=== PATIENT | male | born 1955 | race Caucasian/White ===

== ENCOUNTER 2017-04-22 07:30 | Inpatient (IN) ==
[2017-04-23 19:26] LABS: Basophils # (Auto) 0.1 K/mcL (0.0-0.3); Basophils % (Auto) 0.4 % (0.0-2.0); Eosinophils # (Auto) 0.3 K/mcL (0.0-0.7); Eosinophils % (Auto) 1.9 % (0.0-7.0); Granulocytes % (Auto) 72.5 % (38.0-78.0); Lymphocytes % (Auto) 19.8 % (15.5-49.0); Mean Cell Volume 80.5 fL (80.0-100.0); Mean Corpuscular HGB Conc 33.9 g/dL (31.0-36.0); Mean Corpuscular Hemoglobin 27.3 pg (26.0-34.0); Monocytes # (Auto) 0.8 K/mcL (0.1-0.9); Monocytes % (Auto) 5.4 % (1.0-12.0); Platelet Count 360 K/mcL (140-440); RBC 5.36 M/mcL (4.50-5.90); Red Cell Distribution Width 14.3 % (11.5-14.5)
[2017-04-23 19:32] LABS: Appearance,Urine CLEAR; Bilirubin,Urine NEG (NEG); Color,Urine YELLOW; Glucose,Urine (UA) NEGATIVE (NEG); Leukocyte Esterase,Urine NEG /uL (NEG); Nitrate,Urine NEG (NEG); Protein,Urine NEG (NEG); Urine Blood NEG mg/dL (<0.03); Urobilinogen,Urine NEG (NEG)
[2017-04-23 20:12] LABS: Blood Urea Nitrogen 13 mg/dl (8-23)
[2017-04-29] MEDS ORDERED: CELECOXIB 200 MG CAPSULE PO SCH ×2 (05:00→10:00)
[2017-04-29] MEDS ORDERED: PREGABALIN 75 MG CAPSULE PO SCH ×2 (05:00→10:00)
[2017-04-29] MEDS ORDERED: ceFAZolin 1 GM VIAL IV SCH ×2 (05:00→10:00)
[2017-04-29] MEDS ORDERED: oxyCODONE 10 MG TAB.ER.12H PO SCH ×2 (05:00→10:00)
[2017-04-29] MEDS ORDERED: ACETAMINOPHEN 500 MG TABLET PO SCH ×2 (05:00→10:00)
[2017-04-29] MEDS ORDERED: KETOROLAC 30 MG, ROPIVACAINE HCL/PF 49.5 ML, EPINEPHrine 0.5 MG, 0.9 % SODIUM CHLORIDE ... IJ SCH (06:30)
[2017-04-29] MEDS ORDERED: PROPOFOL 200 MG/20 ML VIAL IV ONE (14:55)
[2017-04-29] MEDS ORDERED: DEXAMETHASONE 10 MG/ML VIAL IV ONE (14:55)
[2017-04-29] MEDS ORDERED: TRANEXAMIC ACID 1,000 MG/10 ML VIAL IV ONE ×2 (14:55→16:27)
[2017-04-29] MEDS ORDERED: ONDANSETRON 4 MG/2 ML VIAL IV ONE (14:55)
[2017-04-29] MEDS ORDERED: PHENYLEPHRINE 10 MG/ML VIAL IV ONE (14:55)
[2017-04-29] MEDS ORDERED: ROPIVACAINE HCL/PF 20 ML VIAL IJ ONE (14:55)
[2017-04-29] MEDS ORDERED: LIDOCAINE HCL/PF 100 MG/5 ML SYRINGE IV ONE (14:55)
[2017-04-29] MEDS ORDERED: MIDAZOLAM 2 MG/2 ML VIAL IV ONE (14:55)
[2017-04-29] MEDS ORDERED: GENTAMICIN SULFATE 800 MG/20 ML VIAL IR ONE (15:14)
[2017-04-29] MEDS ORDERED: METHOCARBAMOL 1,000 MG/10 ML VIAL IV PRN (16:03)
[2017-04-29] MEDS ORDERED: ONDANSETRON 4 MG/2 ML VIAL IV PRN ×2 (16:03→16:27)
[2017-04-29] MEDS ORDERED: BENZOCAINE/MENTHOL 1 LOZENGE PO PRN ×2 (16:03→16:27)
[2017-04-29] MEDS ORDERED: IPRATROPIUM/ALBUTEROL 3 ML AMPUL.NEB NEB PRN (16:03)
[2017-04-29] MEDS ORDERED: fentaNYL 100 MCG/2 ML VIAL IV PRN (16:03)
[2017-04-29] MEDS ORDERED: MEPERIDINE 25 MG/ML SYRINGE IV PRN (16:03)
[2017-04-29] MEDS ORDERED: LACTATED RINGERS 1,000 ML IV SCH (16:15)
[2017-04-29] MEDS ORDERED: POLYETHYLENE GLYCOL 3350 17 GM PACKET PO PRN (16:27)
[2017-04-29] MEDS ORDERED: HYDROmorphone 2 MG/ML SYRINGE IV PRN (16:27)
[2017-04-29] MEDS ORDERED: TEMAZEPAM 15 MG CAPSULE PO PRN (16:27)
[2017-04-29] MEDS ORDERED: MAGNESIUM HYDROXIDE 30 ML ORAL.SUSP PO PRN (16:27)
[2017-04-29] MEDS ORDERED: BISACODYL 10 MG SUPP.RECT PR PRN (16:27)
[2017-04-29] MEDS ORDERED: FLEETS ADULT ENEMA PR PRN (16:27)
[2017-04-29] MEDS ORDERED: ACETAMINOPHEN 325 MG TABLET PO PRN (16:27)
--- NOTE | 2017-04-29 16:27 | Brief Operative Note ---
Date of procedure: 04/29/17 Pre-op diagnosis: Right knee djd Post-op diagnosis: same Procedure: Right knee tka with deya robot Grafts/Implants: Yes Anesthesia: MARINAA Surgeon: Enmanuel Thakkar Associate Financial Advisor: Devin Mcfarlane Estimated blood loss (cc): 22 Tourniquet Time (Minutes): 59 Specimens Removed/Pathology: none sent Condition: stable Disposition: PACU
--- NOTE | 2017-04-29 17:46 | XRay Report ---
HISTORY: Reason for Exam:Post-Op Total Knee FINDINGS: There is a well positioned total knee prosthesis. No fracture is present. There is gas in the joint due to the surgical procedure. IMPRESSION: Well-positioned right knee prosthesis Interpreted and Authenticated by: Kit Barragan 04/29/17
[2017-04-29] MEDS: glipiZIDE 5 MG TABLET PO SCH (17:49)
[2017-04-29] MEDS: 0.45 % SODIUM CHLORIDE 1,000 ML IV SCH (17:49)
[2017-04-29] MEDS: KETOROLAC 15 MG/ML VIAL IV SCH (17:53)
[2017-04-29] MEDS: HYDROcodone/APAP 10/325MG TABLET PO PRN (17:56)
[2017-04-29] MEDS ORDERED: SENNOSIDES 1 TABLET PO SCH (21:00)
[2017-04-29] MEDS ORDERED: TERAZOSIN 5 MG CAPSULE PO SCH (21:00)
[2017-04-29] MEDS ORDERED: SIMVASTATIN 40 MG TABLET PO SCH (21:00)
[2017-04-29] MEDS: MAGNESIUM OXIDE 400 MG TABLET PO SCH (21:45)
[2017-04-29] MEDS: ASPIRIN 325 MG ENTERIC COATED TABLET PO SCH (21:45)
[2017-04-29] MEDS: DOCUSATE SODIUM 100 MG CAPSULE PO SCH (21:45)
[2017-04-29] MEDS: metFORMIN 500 MG TABLET PO SCH (21:45)
[2017-04-29] MEDS: ceFAZolin 1 GM VIAL IV SCH (22:00)
[2017-04-29] MEDS: 0.9 % SODIUM CHLORIDE 10 ML SYRINGE IV SCH (23:06)
[2017-04-30] MEDS: KETOROLAC 15 MG/ML VIAL IV SCH ×3 (00:14→11:58)
[2017-04-30] MEDS: 0.45 % SODIUM CHLORIDE 1,000 ML IV SCH (04:35)
[2017-04-30] MEDS: HYDROcodone/APAP 10/325MG TABLET PO PRN ×3 (06:15→14:04)
[2017-04-30] MEDS: ceFAZolin 1 GM VIAL IV SCH (06:34)
[2017-04-30] MEDS: 0.9 % SODIUM CHLORIDE 10 ML SYRINGE IV SCH ×2 (06:34→16:08)
--- NOTE | 2017-04-30 07:50 | Orthopedic Progress Note ---
Subjective Patient information: Note initiated : 04/30/17 at 7:49 am Service Date, if different from initiated Date: [] Patient: Jaret Gooden 62 y/o M admitted on 04/29/17 for Right Total Knee Arthroplasty w/Robotic Assist. Chief Complaint: [Pt is stable this morning on post operative day 1 without any significant concerns or complaints. Patients vital signs have remained stable. Patients dressing is dry and exhibits a grossly intact neurovascular and neuromotor exam. Patients 10 point ROS is otherwise negative. ] Objective Vital signs: Vital Signs Temp Pulse Resp BP Pulse Ox 04/30/17 04:00 98.0 F 73 14 118/68 97 04/29/17 23:44 97.6 F 71 14 135/70 96 04/29/17 23:43 96 04/29/17 21:00 95 04/29/17 20:27 94 04/29/17 20:15 97.5 F 74 14 131/73 94 04/29/17 19:15 70 113/63 95 04/29/17 18:45 66 117/68 97 04/29/17 18:15 80 134/81 97 04/29/17 18:00 68 122/71 97 04/29/17 17:45 77 127/73 97 04/29/17 17:30 97.4 F 70 16 118/68 96 04/29/17 17:15 97.4 F 67 18 153/71 96 04/29/17 16:55 74 18 155/70 95 04/29/17 16:40 97.6 F 75 18 116/53 97 04/29/17 08:48 98 F 20 111/71 95 Intake and Output 04/29/17 04/30/17 04/30/17 21:59 05:59 13:59 Intake Total 4500 / 4500 1940 / 1940 600 / 600 Output Total 625 / 625 1000 / 1000 Balance 3875 / 3875 940 / 940 600 / 600 Intake: Oral 800 / 800 1940 / 1940 600 / 600 IV - Manual Only 3700 / 3700 Output: Void Amount 575 / 575 1000 / 1000 Estimated Blood Loss 50 / 50 Other: Meal jello toast Percent of Meal Consumed 100% 100% Feeding Ability Independent Weight 334 lb 8 oz Intake & Output: Intake & Output 04/29/17 04/30/17 04/30/17 21:59 05:59 13:59 Intake Total 4500 / 4500 1940 / 1940 600 / 600 Output Total 625 / 625 1000 / 1000 Balance 3875 / 3875 940 / 940 600 / 600 Weight 334 lb 8 oz Intake: Oral 800 / 800 1940 / 1940 600 / 600 IV - Manual Only 3700 / 3700 Output: Void Amount 575 / 575 1000 / 1000 Estimated Blood Loss 50 / 50 Other: Meal jello toast Percent of Meal Consumed 100% 100% Feeding Ability Independent Incision: Yes healing Incision clean and dry: Yes Dressing: Yes clean Neurological exam IM: Yes motor sensory intact, Yes neurovascular intact Extremities exam IM: Yes Foot pink and warm, Yes neurovascular intact - Labs CBC & BMP: 04/30/17 05:44 04/23/17 17:09 Labs: Orthopedic Labs 04/23/17 17:09 PT 13.5 INR 1.0 APTT 32 04/30/17 04/23/17 05:44 17:10 Hgb 14.6 Hct 34.3 L 43.2 Assessment and Plan (1) Hx of total knee arthroplasty Patient has been educated regarding wound care and dressings, follow up recommendations, and medication use. We will f/u with the patient within 2-3 weeks for wound check. Status: Acute
--- NOTE | 2017-04-30 07:52 | Discharge Summary ---
Ortho Discharge - TKA - Patient Instructions Diet: Regular Diet Activity: activity as tolerated, weight bearing as tolerated Total Knee Protocol: For Total Knee: Start ROM EKATERINA with stationary bike or rocking chair. Work on gaining full extension of knee. Posterior dislocation precautions provided. Hip abductor strengthening and gait training instructions provided. Apply Cryocuff as instructed. Dressing Care: May shower in 3 days, Aquacel Ag - leave on for 5 days Patient Education: Total Knee Replacement (DC) Additional Instructions: [place] [employer] [phone] APPOINTMENT: Saturday05/03/17 @ 3:00 pm Please arrive 15 minutes early to complete paperwork. Wear comfortable clothes. Bring your photo ID and insurance cards to your appointment. 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 Bring your photo ID and insurance cards. - Problem Maintenance (1) Hx of total knee arthroplasty Status: Acute - Follow Up Plan Follow Up Appointments: Enmanuel Thakkar MD [Physician] - 05/14/17 1:40 pm Disposition: Home, Self-Care Prognosis: Good Rehab Potential: Good I certify that the patient requires SNF services: No Overall status at discharge: patient is progressing back to baseline - Orders For Discharge Prescriptions: Aspirin [Ecotrin] 325 mg PO BID #60 Docusate Sodium [Colace] 100 mg PO BID #60 capsule HYDROcodone/APAP 10/325MG [[place] 10/325Mg] 1 - 2 tab PO Q4HP PRN #75 tablet PRN Reason: Pain
[2017-04-30] MEDS ORDERED: FERROUS SULFATE 325 MG TABLET PO SCH (08:00)
--- NOTE | 2017-04-30 08:13 | Operative Note ---
DATE OF OPERATION: 04/29/2017 PREOPERATIVE DIAGNOSIS: Right knee degenerative arthritis in all three compartments. POSTOPERATIVE DIAGNOSIS: Right knee degenerative arthritis in all three compartments. PROCEDURE: Right total knee arthroplasty using the [employer] robot. IMPLANTS: Nicole cemented components, size per nurse's note. DESCRIPTION OF PROCEDURE: The patient was brought to the operating room and put to sleep with general LMA anesthesia. Once asleep, the patient had the right leg sterilely prepped and draped in the usual sterile fashion. Once sterilely prepped and draped and we confirmed the operative side as the right side, an incision was made in the midline incision. Preop antibiotics and tranexamic acid had been given. The knee, once opened showed severe arthritis throughout all compartments, mostly on the medial side of the patellofemoral joint. At this point, we proceeded with a total knee arthroplasty. I registered the center of hip rotation after placing two pins above and below the knee. The arrays were attached and one intra-articular pin on the femur and the tibia, registered 30 points on the femur and tibia, balanced the knee in 15 degrees of flexion and 90 degrees of flexion. Once this was done and we repositioned the implants to make them perfectly perfect for his anatomy, we then brought the knee through the full range of motion. This started with about -8 degrees of flexion contracture and 4 degrees of varus and we had corrected with the robot to -3 degrees extension and 1 degree of varus valgus. We then had the robot brought in. The cuts of the femur and the tibia were made. The meniscal root was removed both medial and lateral. Any osteophytes posteriorly were removed with osteotomes. We irrigated thoroughly and then removed osteophytes and the bony fragments. We then punched into place the tibial baseplate setting rotation using the robot. We then placed the femoral component and this was positioned, medial and laterally perfectly. Once this was positioned, we then trialed the size 11 and 9 poly. The 11 was slightly too tight given 90 degrees of flexion contracture. We placed the 9. The 11 was removed and the 9 was placed. The 9 fit very nicely obtaining 1 to 3 degrees of flexion and 1 degree of varus. This perfectly corrected his anatomy. We irrigated thoroughly and cemented into place the femoral and tibial components. Excess cement was removed. A 9 mm poly was placed and a 35 mm eccentric patella was placed. This gave almost anatomic alignment of the patella and coverage. We irrigated. This started at 24 mm. This was cut to 13 mm and a 35 mm patellar button was placed. We irrigated thoroughly and deflated the tourniquet at approximately 59 minutes. Bovie was used to control any bleeders. We then used the StrataFix x2 to close the medial capsule. Once this was done, we then closed the skin with 2-0 Vicryl and adhesive closure. The portals were closed with 4-0 nylon. The patient tolerated this well. There were no complications. A sterile bandage was applied. Tourniquet was deflated at 59 minutes. RBH:kh Job ID: [id number] Doc ID: [id number] Enmanuel Thakkar MD
[2017-04-30] MEDS ORDERED: PIOGLITAZONE HCL 45 MG TABLET PO SCH (09:00)
[2017-04-30] MEDS ORDERED: MULTIVIT,THER IRON,CA,FA & MIN 1 TABLET PO SCH (09:00)
[2017-04-30] MEDS ORDERED: FISH OIL 1,000 MG CAPSULE PO SCH (09:00)
[2017-04-30] MEDS ORDERED: CHLORTHALIDONE 25 MG TABLET PO SCH (09:00)
[2017-04-30] MEDS ORDERED: LOSARTAN 50 MG TABLET PO SCH (09:00)
[2017-04-30] MEDS: glipiZIDE 5 MG TABLET PO SCH (09:18)
[2017-04-30] MEDS: ASPIRIN 325 MG ENTERIC COATED TABLET PO SCH (09:18)
[2017-04-30] MEDS: metFORMIN 500 MG TABLET PO SCH (09:19)
[2017-04-30] MEDS: MAGNESIUM OXIDE 400 MG TABLET PO SCH (09:19)
[2017-04-30] MEDS: DOCUSATE SODIUM 100 MG CAPSULE PO SCH (09:19)
[2017-04-30] MEDS ORDERED: metFORMIN 500 MG TABLET PO SCH (12:00)
[2017-05-04] MEDS ORDERED: ERGOCALCIFEROL (VITAMIN D2) 50,000 UNIT CAPSULE PO SCH (09:00)
== END 2017-04-30 15:14 | disposition home or self-care (01) | DRG 470 ==
LOC: MEDSUR 04-29 08:25
PROVIDERS: ADMIT Orthopaedic Surgery; ATTEND Orthopaedic Surgery